=== PATIENT | male | born 1950 | race Asian ===

== ENCOUNTER 2016-09-23 08:33 | Day surgery (SDC) | payer BC, OTHER ==
[2016-09-16 16:53] VITALS: BMI 23.1
[2016-09-23] MEDS ORDERED: HEPARIN NA (PORCINE) 5,000 UNITS/ML 1ML VIAL ONE (09:40)
[2016-09-23] MEDS ORDERED: LIDOCAINE HCL 1%, 10 MG/ML (20ML VIAL) ONE (09:40)
[2016-09-23] MEDS ORDERED: MIDAZOLAM HCL 2 MG/2 ML SINGLE DOSE VIAL ONE (10:08)
[2016-09-23] MEDS ORDERED: ceFAZolin SODIUM 1 GM VIAL ONE (10:53)
[2016-09-23] MEDS ORDERED: ceFAZolin SODIUM 1 GM VIAL IVPB ONE (10:54)
[2016-09-23] MEDS ORDERED: LIDOCAINE HCL 1%, 10 MG/ML (20ML VIAL) IJ ONE (11:08)
[2016-09-23] MEDS ORDERED: oxyCODONE HCL 5 MG TABLET PO PRN (11:36)
[2016-09-23] MEDS ORDERED: ONDANSETRON 4 MG/2 ML VIAL IVPUSH PRN (11:36)
[2016-09-23] MEDS ORDERED: SODIUM CHLORIDE 1,000 ML IV SCH (11:45)
--- NOTE | 2016-09-23 11:48 | HP ---
Admitting History and Physical - Admission Chief Complaint: low flow left avf - Smoking History Smoking history: Former smoker Have you smoked in the past 12 months: No Aproximately how many cigarettes per day: 0 If you are a former smoker, when did you quit?: 20 yrs ago - Alcohol/Substance Use Hx Alcohol Use: No Home Medications - Allergies Allergies/Adverse Reactions: Allergies Allergy/AdvReac Type Severity Reaction Status Date / Time No Known Drug Allergies Allergy Verified 05/19/16 11:48 - Home Medications Home Medications: Ambulatory Orders Amlodipine Besylate [Norvasc -] 5 mg PO DAILY 01/13/15 Atorvastatin Ca [Lipitor -] 20 mg PO DAILY 01/13/15 Hydralazine HCl 50 mg PO BID 01/13/15 Metoprolol Tartrate [Lopressor] 200 mg PO BID 01/13/15 Warfarin Sodium [Coumadin] 3 mg PO HS 01/13/15 Furosemide [Lasix -] 80 mg PO DAILY 04/19/16 Spironolactone 25 mg PO DAILY 04/19/16 Lidocaine 5% Top. Ointment [Xylocaine 5% Top. Ointment -] 1 applic TP DAILY #1 tube 04/29/16 Physical Examination Vital Signs: Vital Signs Temperature 97.6 F 09/23/16 09:00 Pulse Rate 86 09/23/16 09:00 Respiratory Rate 18 09/23/16 09:00 Blood Pressure 110/66 09/23/16 09:00 O2 Sat by Pulse Oximetry (%) 99 09/23/16 09:09 Constitutional: Yes: Well Nourished Eyes: Yes: WNL HENT: Yes: WNL Neck: Yes: WNL Cardiovascular: Yes: WNL Respiratory: Yes: WNL Gastrointestinal: Yes: WNL Labs: CBC, BMP 09/23/16 08:40 Assessment/Plan Low flow left avf 1. For venogram today.
--- NOTE | 2016-09-23 11:49 | OP ---
Operative Note - Note: Operative Date: 09/23/16 Pre-Operative Diagnosis: Poor flow left avf Operation: venogram,venoplasty left avf, ligation of vein tributary Post-Operative Diagnosis: Same as Pre-op Surgeon: Bk Alarcon Anesthesia: Fractional Estimated Blood Loss (mls): 40 Operative Report Dictated: Yes
--- NOTE | 2016-09-23 13:05 | OP ---
DATE OF OPERATION: 09/23/2016 PREOPERATIVE DIAGNOSIS: Poor flow left arteriovenous fistula. POSTOPERATIVE DIAGNOSIS: Poor flow left arteriovenous fistula. PROCEDURE: Venogram venoplasty of left arteriovenous fistula with ligation of vein tributary. SURGEON: Bk Banegas MD ANESTHESIA: Fractional. BLOOD LOSS: 40 mL. INDICATIONS: The patient is a 62-year-old male who came from the dialysis unit to the office last week with chief complaint of poor flow in his left AV fistula. 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 It was decided that we would take a venogram of the AV fistula to make sure that there was no stenotic lesions and also tie off that branch. Patient came into ambulatory surgery today. Patient was consented for the procedure understanding all risks, benefits, and alternatives, and was then taken to the operating room. DESCRIPTION OF PROCEDURE: Once in the operating room, he was placed on the operating table in the supine manner, and the area of the left arm was prepped and draped in a sterile surgical manner. We then went ahead and injected 5 mL of lidocaine 1% over the vein tributary. We then used a No. 15 blade and made a transverse incision over the vein. We then went ahead and dissected down using a right angle, and we were able to dissect out the vein. The vein was dissected anteriorly and posteriorly. At this point, we then went ahead and used our micropuncture needle and punctured the vein. Micropuncture wire was inserted, our micropuncture sheath was inserted, and a traditional short 6-[place] sheath was inserted. We then shot a venogram of the AV fistula, and we found that, in the body of the fistula, there was about a 70% to 80% stenosis. We placed a 0.035 floppy guidewire through the lesion, 3000 units of IV heparin were administered to the patient, and using an 8 x 4 balloon, we performed a venoplasty of the AV fistula. Once completed, we shot another venogram which showed that the vein was now patent and there was no recoil. We went ahead now and used 0 silk ties, and we tied the vein off proximally and distally to the sheath, and the sheath was pulled. So, now the vein was tied off, so, no more flow could come into the vein tributary. At this point, the wound was irrigated using 4-0 Biosyn. We were able to place 3 simple stitches, interrupted. The wound was well approximated, the incision was well approximated, and 2 Steri-Strips were placed. Patient tolerated the procedure with no complication. Patient transferred to PACU in stable condition. BK BANEGAS DO NP/[id number]
[2016-09-23 14:45] VITALS: BP 144/89; PULSE 88; TEMP 97.3
== END 2016-09-23 14:40 | disposition home or self-care (01) ==
LOC: JASU-SURG 08:33
PROVIDERS: ATTEND Surgery Vascular Surgery
PROC: 057Y3ZZ Dilation of Upper Vein, Percutaneous Approach (ICD-10-PCS; principal; 2016-09-23 10:30)
DX: T82.898A Other specified complication of vascular prosthetic devices, implants and grafts, initial encounter (principal); I12.0 Hypertensive chronic kidney disease with stage 5 chronic kidney disease or end stage renal disease; E11.22 Type 2 diabetes mellitus with diabetic chronic kidney disease; N18.6 End stage renal disease; Z99.2 Dependence on renal dialysis
CPT/HCPCS: 36415; 76000-TC; 84132; 94760; J1644

== ENCOUNTER 2016-10-08 06:47 | Day surgery (SDC) | payer BC ==
[2016-10-07 12:03] VITALS: BMI 23.1
[2016-10-08 07:26] LABS: BASOPHIL 0.8 % (0-2.0); EOSINOPHIL 1.3 % (0-4.5); MCH 31.2 pg (25.7-33.7); MCHC 32.8 g/dl (32.0-35.9); MEAN CELL VOLUME 95.2 fl (80-96); MEAN PLT VOLUME 8.5 fl (7.5-11.1); NEUTROPHILS 61.2 % (42.8-82.8); PLATELET COUNT 138 K/MM3 (134-434); RDW 16.5 % (11.9-15.9); WHITE BLOOD COUNT 7.3 K/mm3 (4.0-10.0)
[2016-10-08 08:03] LABS: ALBUMIN 3.6 g/dl (3.4-5.0); BILIRUBIN,TOTAL 0.8 mg/dL (0.2-1.0); CALCIUM 9.1 mg/dL (8.5-10.1); TOT PROT 7.2 g/dl (6.4-8.2)
[2016-10-08 08:33] LABS: CREATININE 9.1 mg/dL (0.7-1.3)
[2016-10-08] MEDS ORDERED: MIDAZOLAM HCL 2 MG/2 ML SINGLE DOSE VIAL ONE (08:51)
[2016-10-08] MEDS ORDERED: PROMETHAZINE HCL 25 MG/1 ML VIAL IVPUSH PRN (09:03)
[2016-10-08] MEDS ORDERED: ONDANSETRON 4 MG/2 ML VIAL IVPUSH PRN (09:03)
[2016-10-08] MEDS ORDERED: HEPARIN NA (PORCINE) 5,000 UNITS/ML 1ML VIAL ONE (09:07)
[2016-10-08] MEDS ORDERED: LIDOCAINE HCL 1%, 10 MG/ML (20ML VIAL) ONE (09:07)
[2016-10-08] MEDS ORDERED: SODIUM CHLORIDE 1,000 ML IV SCH (09:15)
[2016-10-08] MEDS ORDERED: ceFAZolin SODIUM 1 GM VIAL IVPB ONE (09:34)
[2016-10-08] MEDS ORDERED: SODIUM CHLORIDE 0.9% P/F 10 ML VIAL IJ ONE (09:42)
[2016-10-08] MEDS ORDERED: ceFAZolin SODIUM 1 GM VIAL ONE (09:42)
[2016-10-08] MEDS ORDERED: LIDOCAINE HCL/PF 2% SDV 5ML VIAL ONE (09:42)
[2016-10-08] MEDS ORDERED: PROPOFOL 20 ML ONE (09:45)
[2016-10-08] MEDS ORDERED: LIDOCAINE HCL 1%, 10 MG/ML (20ML VIAL) IJ ONE (09:51)
[2016-10-08 09:55] LABS: INR 1.86 (0.82-1.09); PROTHROMBIN TIME (PATIENT) 20.7 SEC (9.98-11.88)
[2016-10-08 09:58] LABS: ACTIVATED PTT 39.7 SECONDS (26.9-34.4)
--- NOTE | 2016-10-08 10:18 | HP ---
Admitting History and Physical - Admission Chief Complaint: poor flow in left avf - Smoking History Smoking history: Former smoker Have you smoked in the past 12 months: No Aproximately how many cigarettes per day: 0 If you are a former smoker, when did you quit?: 20 yrs ago - Alcohol/Substance Use Hx Alcohol Use: No Home Medications - Allergies Allergies/Adverse Reactions: Allergies Allergy/AdvReac Type Severity Reaction Status Date / Time No Known Drug Allergies Allergy Verified 05/19/16 11:48 - Home Medications Home Medications: Ambulatory Orders Atorvastatin Ca [Lipitor -] 20 mg PO DAILY 01/13/15 Hydralazine HCl 50 mg PO DAILY 01/13/15 Metoprolol Tartrate [Lopressor] 100 mg PO DAILY 01/13/15 Warfarin Sodium [Coumadin] 3 mg PO HS 01/13/15 Spironolactone 25 mg PO DAILY 04/19/16 Lidocaine 5% Top. Ointment [Xylocaine 5% Top. Ointment -] 1 applic TP DAILY #1 tube 04/29/16 Physical Examination Vital Signs: Vital Signs Temperature 97.4 F L 10/08/16 07:26 Pulse Rate 88 10/08/16 07:26 Respiratory Rate 20 10/08/16 07:26 Blood Pressure 129/72 10/08/16 07:26 O2 Sat by Pulse Oximetry (%) 99 10/08/16 07:26 Constitutional: Yes: Well Nourished Eyes: Yes: WNL HENT: Yes: WNL Neck: Yes: WNL Cardiovascular: Yes: WNL Respiratory: Yes: WNL Gastrointestinal: Yes: WNL Extremities: Yes: WNL Labs: CBC, BMP 10/08/16 07:05 10/08/16 07:05 Assessment/Plan Poor flow left avf 1. for venoplasty today
--- NOTE | 2016-10-08 10:19 | OP ---
Operative Note - Note: Operative Date: 10/08/16 Pre-Operative Diagnosis: Poor flow left avf Operation: venogram, venoplasty left avf Findings: 80% stenosis proximal left avf to anastomosis Post-Operative Diagnosis: Same as Pre-op Surgeon: Bk Alarcon Anesthesia: Fractional Estimated Blood Loss (mls): 10 Operative Report Dictated: Yes
[2016-10-08 11:54] VITALS: BP 131/79; PULSE 82; TEMP 97.4
== END 2016-10-08 12:15 | disposition home or self-care (01) ==
LOC: JASU-SURG 06:47
PROVIDERS: ATTEND Surgery Vascular Surgery
PROC: 057Y3ZZ Dilation of Upper Vein, Percutaneous Approach (ICD-10-PCS; principal; 2016-10-08 09:00)
DX: T82.858A Stenosis of other vascular prosthetic devices, implants and grafts, initial encounter (principal); I12.0 Hypertensive chronic kidney disease with stage 5 chronic kidney disease or end stage renal disease; N18.6 End stage renal disease; Z99.2 Dependence on renal dialysis
CPT/HCPCS: 36415; 76000-TC; 80053; 85025; 85610; 85730; 94760; J1644

== ENCOUNTER 2017-01-25 08:58 | Day surgery (SDC) | payer OTHER, BC ==
[2017-01-21 13:51] VITALS: BMI 23.1
[2017-01-25] MEDS ORDERED: HEPARIN NA (PORCINE) 5,000 UNITS/ML 1ML VIAL ONE ×2 (11:26→12:09)
[2017-01-25] MEDS ORDERED: PROPOFOL 20 ML ONE ×4 (11:26→11:32)
[2017-01-25] MEDS ORDERED: ceFAZolin SODIUM 1 GM VIAL IVPB ONE (12:06)
[2017-01-25] MEDS ORDERED: LIDOCAINE HCL 1%, 10 MG/ML (20ML VIAL) IJ ONE (12:07)
[2017-01-25] MEDS ORDERED: LIDOCAINE HCL 1%, 10 MG/ML (20ML VIAL) INF ONE (12:07)
[2017-01-25] MEDS ORDERED: HEPARIN NA (PORCINE) 5,000 UNITS/ML 1ML VIAL SQ ONE (12:10)
--- NOTE | 2017-01-25 12:26 | OP ---
Operative Note - Note: Operative Date: 01/25/17 Pre-Operative Diagnosis: stenosis left avf Operation: venogram, venoplasty left avf Post-Operative Diagnosis: Same as Pre-op Surgeon: Bk Alarcon Anesthesia: Fractional Estimated Blood Loss (mls): 5 Operative Report Dictated: Yes
--- NOTE | 2017-01-25 12:28 | HP ---
Admitting History and Physical - Admission Chief Complaint: low flow in left avf in HD - Smoking History Smoking history: Former smoker Have you smoked in the past 12 months: No Aproximately how many cigarettes per day: 0 If you are a former smoker, when did you quit?: 20 yrs ago - Alcohol/Substance Use Hx Alcohol Use: No Home Medications - Allergies Allergies/Adverse Reactions: Allergies Allergy/AdvReac Type Severity Reaction Status Date / Time No Known Drug Allergies Allergy Verified 01/21/17 13:37 - Home Medications Home Medications: Ambulatory Orders Hydralazine HCl 50 mg PO DAILY 01/13/15 Metoprolol Tartrate [Lopressor] 100 mg PO DAILY 01/13/15 Spironolactone 25 mg PO DAILY 04/19/16 Warfarin Sodium [Coumadin] 6 mg PO DAILY 01/21/17 Physical Examination Vital Signs: Vital Signs Temperature 97.7 F 01/25/17 10:25 Pulse Rate 56 L 01/25/17 10:25 Respiratory Rate 18 01/25/17 10:25 Blood Pressure 98/63 01/25/17 10:25 O2 Sat by Pulse Oximetry (%) 95 01/25/17 10:25 Constitutional: Yes: Well Nourished Eyes: Yes: WNL HENT: Yes: WNL Neck: Yes: WNL Cardiovascular: Yes: WNL Respiratory: Yes: WNL Gastrointestinal: Yes: WNL Edema: No Peripheral Pulses WNL: Yes Labs: CBC, BMP 01/25/17 09:26 Assessment/Plan Low flow in left avf in HD 1. for venogram, venoplasty today
[2017-01-25] MEDS ORDERED: ONDANSETRON 4 MG/2 ML VIAL IVPUSH PRN (12:39)
[2017-01-25 13:00] VITALS: TEMP 97.9
[2017-01-25 15:37] VITALS: BP 116/58; PULSE 64
--- NOTE | 2017-01-26 10:49 | OP ---
DATE OF OPERATION: 01/25/2017 PREOPERATIVE DIAGNOSIS: Stenosis, left arteriovenous fistula. POSTOPERATIVE DIAGNOSIS: Stenosis, left arteriovenous fistula. PROCEDURE: Venogram, venoplasty, left arteriovenous fistula. SURGEON: Bk Banegas DO ANESTHESIA: Fractional. BLOOD LOSS: 5 mL INDICATION: The patient is a 66-year-old male with a left radiocephalic fistula. He came in from the dialysis unit with there chief complaint of being low volume flow in his left AV fistula. It was decided that he would need a venogram for any areas of stenosis. Patient was consented for the procedure, understanding all risks, benefits, and alternatives and then taken to the operating room. DESCRIPTION OF PROCEDURE: Once in the operating room, he was laid on the operating table in supine manner, and the area of the left arm was prepped and draped in a sterile surgical manner. Under ultrasound guidance, we were able to visualize the cephalic vein below the antecubital fossa, and 5 mL of was injected there. We then took our Micropuncture needle and punctured the vein, and a Micropuncture wire inserted, short 6-Portuguese sheath was inserted. Next, 3000 units of IV heparin were administered. We then shot a venogram by hand injection showing that the proximal AV fistula had a stenosis of almost 70%. At this point, we placed a 0.035 guidewire down through the anastomosis under fluoroscopy. We then used an 8 x 6 [place] balloon and performed venoplasty of the entire fistula from the anastomosis up to the antecubital fossa. Completion venogram showed that the fistula was now patent at the area of stenosis. There was no recoil, and there was a good thrill in the AV fistula. At this point, we used a 4-0 Biosyn stitch, and a figure-of-8 stitch was placed around our sheath, and the sheath was pulled. The area was wet and dried, and Dermabond was placed. The patient tolerated the procedure with no complication. The patient was transferred back in stable condition. BK BANEGAS DO VALUER/[id number]
== END 2017-01-25 13:45 | disposition home or self-care (01) ==
LOC: JASU-SURG 08:58
PROVIDERS: ATTEND Surgery Vascular Surgery
PROC: 057F3ZZ Dilation of Left Cephalic Vein, Percutaneous Approach (ICD-10-PCS; principal; 2017-01-25 11:00)
DX: T82.858A Stenosis of other vascular prosthetic devices, implants and grafts, initial encounter (principal)
CPT/HCPCS: 36415; 76000-TC; 84132; 94760; J1644

== ENCOUNTER 2017-06-17 11:51 | Day surgery (SDC) | payer BC, OTHER ==
[2017-06-17 13:02] VITALS: BMI 29.0
[2017-06-17 14:43] VITALS: TEMP 98
[2017-06-17 15:44] VITALS: BP 117/67; PULSE 91
--- NOTE | 2017-06-21 18:26 | PATH ---
Surgical Pathology Report Patient Name: SHELLY BRAVO [facility]. Rec. #: [id number] /Age/Gender: 1950 (Age: 66) / M Account: [id number] Location: U-ENDOSCOPY Taken: 06/17/2017 Received: 06/20/2017 Reported: 06/21/2017 Physicians: Gloria Sprague M.D. Specimen(s) Received A: BX DESCENDING COLON B: DISTAL TRANSVERSE COLON C: RECTAL POLYP Clinical History Preoperative diagnosis: Polyp surveillance Postoperative diagnosis: Colon polyps, diverticulosis Final Diagnosis A. DESCENDING COLON, POLYPS, BIOPSY: HYPERPLASTIC POLYP. B. DISTAL TRANSVERSE COLON, POLYPS, BIOPSY: POLYPOID COLONIC MUCOSA WITH SUPERFICIAL HYPERPLASTIC FEATURES. C. RECTUM, POLYP, BIOPSY: HYPERPLASTIC POLYP(S). Electronically Signed Savannah De La Cruz M.D. Gross Description A. Received in formalin, labeled "polyps descending colon" are 2 davis, irregular portions of soft tissue measuring 0.1 and 0.4 cm. in greatest dimension. The specimens are submitted in toto in one cassette. B. Received in formalin, labeled "distal transverse colon polyps" are 4 davis, irregular portions of soft tissue ranging from 0.1-0.3 cm. in greatest dimension. The specimens are submitted in toto in one cassette. C. Received in formalin, labeled "biopsy rectal polyps" are 2 davis, irregular portions of soft tissue averaging 0.2 cm. in greatest dimension. The specimens are submitted in toto in one cassette. 06/20/201706/20/2017
== END 2017-06-17 15:52 | disposition home or self-care (01) ==
LOC: JASU-ENDO 11:51
PROVIDERS: ATTEND Internal Medicine Gastroenterology
PROC: 0DBL8ZX Excision of Transverse Colon, Via Natural or Artificial Opening Endoscopic, Diagnostic (ICD-10-PCS; 2017-06-17)
PROC: 0DBP8ZX Excision of Rectum, Via Natural or Artificial Opening Endoscopic, Diagnostic (ICD-10-PCS; 2017-06-17)
PROC: 0DBM8ZX Excision of Descending Colon, Via Natural or Artificial Opening Endoscopic, Diagnostic (ICD-10-PCS; principal; 2017-06-17 13:00)
DX: Z86.010 Personal history of colon polyps (principal); D12.4 Benign neoplasm of descending colon; D12.3 Benign neoplasm of transverse colon; K62.1 Rectal polyp; K57.30 Diverticulosis of large intestine without perforation or abscess without bleeding
CPT/HCPCS: 36415; 84132; 88305-TC